=== PATIENT | female | born 1970 | race Caucasian/White ===

== ENCOUNTER 2023-09-20 18:42 | Observation (INO) | payer SELFPAY ==
[2023-09-20 18:52] VITALS: BP 145/95; PULSE 102; RESP 15; TEMP 37.1; O2SAT 98; BMI 25.2
--- NOTE | 2023-09-20 19:08 | CT_ITS ---
The [address] [address] Patient Name: MARIANELA AVITIA MRN: [id number] date: 1970 Sex: F Assigned Patient Location: ER Current Patient Location: ER Accession/Order Number: [id number] Exam Date: 09/20/2023 19:23 Report Date: 09/20/2023 20:30 At the request of: ADRIÁN HENNESSY Procedure: CT lumbar spine wo con EXAM: CT lumbar spine wo con HISTORY: lumbar radiculopathy COMPARISON: None. TECHNIQUE: CT lumbar spine without contrast. Multiplanar reformats obtained. The current study utilizes one or more of the following dose-reduction techniques: automated exposure control, iterative reconstruction, and/or manual adjustment of tube current and voltage for size. FINDINGS: No evidence of acute fracture or traumatic malalignment. Mild multilevel disc height loss. Bones are demineralized. Mild diffuse disc bulging at L1-L2. Spinal canal and neural foramen are grossly patent. Moderate broad-based disc bulging at L2-L3. Spinal canal neural foramen grossly patent. Mild broad-based disc bulging at L3-L4 with grossly patent spinal canal neural foramen. Mild diffuse disc bulging at L4-L5 with grossly patent spinal canal and neural foramen. Central to right paracentral disc extrusion at L5-S1 with caudal migration and narrowing of the right lateral recess, likely involving the descending right-sided S1 nerve root. Bilateral L5-S1 neural foramen are grossly patent. Atrophy of the left kidney CT/CT lumbar spine wo con IMPRESSION: L5-S1 disc extrusion. Central to right paracentral location with caudal migration and narrowing of the right lateral recess and likely involvement of the descending right S1 nerve root. Electronically authenticated by: GEETHA SMITH Date: 09/20/2023 20:30
--- NOTE | 2023-09-20 19:10 | ED_ITS ---
Documented by User: [email or web address] Sullivan 09/20/23 21:48 HPI - Back Pain/Injury General Chief Complaint: Back Pain/Injury Stated Complaint: BACK PAIN Time Seen by Provider: 09/20/23 18:50 Source: patient Mode of arrival: walk-in Limitations: no limitations History of Present Illness HPI Narrative: Patient is a 53-year-old female with a history of chronic back pain who presents to the emergency department for pain control. She states for almost a year she has had increasing pain throughout the spine, worse at the inferior spine and lumbar spine. She has a history of spinal stenosis and had surgery years ago. She states she was being seen by the [facility] and MRIs were ordered but she lost her insurance and her does not have insurance and they do not have money for deposit. She does not have an appointment with a PCP until next week and states she could not take the pain. She admits to drinking 4-5 white claws today to self medicate for pain in addition to taking Tylenol and baclofen 3 hours ago. She reports chronic numbness that is not worse or different today to the right lower extremity. She has chronic urinary incontinence but no stool incontinence. Related Data Home Medications ?Medication ?Instructions ?Recorded ?Confirmed aspirin 81 mg tablet,delayed 81 mg PO DAILY 09/20/23 09/20/23 release baclofen 10 mg tablet 10 mg PO DAILY 09/20/23 09/20/23 losartan 25 mg tablet 25 mg PO DAILY 09/20/23 09/20/23 Allergies Allergy/AdvReac Type Severity Reaction Status Date / Time hydromorphone [From Dilaudid] Allergy Severe Verified 09/20/23 21:46 morphine Allergy Intermediate itch Verified 09/20/23 18:50 Review of Systems ROS Constitutional Denies: fever or chills Ears, nose, mouth, and throat Denies: throat pain or nasal congestion Cardiovascular Denies: chest pain Respiratory Denies: shortness of breath or cough Gastrointestinal Denies: abdominal pain, nausea or vomiting Genitourinary Denies: painful urination Musculoskeletal Reports: back pain; Denies: neck pain or extremity pain Integumentary/Breast Denies: rash Neurological Denies: headache Hematologic/Lymphatic Denies: easy bruising or easy bleeding [facility] Medical History (Updated 09/20/23 @ 22:46 by Annelise Vasquez) 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, lumbar region (ICD-10) Surgical History (Updated 09/20/23 @ 22:46 by Annelise Vasquez) H/O total hysterectomy ?Z90.710 - Acquired absence of both cervix and uterus (ICD-10) H/O splenectomy ?Z90.81 - Acquired absence of spleen (ICD-10) Family History (Updated 09/20/23 @ 23:04 by Shabana Mendoza RN) Father Family history of cancer Family history of diabetes mellitus Family history of hypertension Mother Family history of diabetes mellitus Family history of hypertension Social History (Updated 09/20/23 @ 22:49 by Annelise Vasquez) Within the past year, how often did you have a drink containing alcohol: 4 or more times a week Within the past year, how many standard drinks containing alcohol did you have on a typical day: 3 or 4 Within the past year, how often did you have six or more drinks on one occasion: weekly Total score: 5 Score interpretation: A score of 3 or more indicates drinking is likely to affect patient's safety. Smoking status: Former smoker Non-prescribed substance use: denies use Previous occupational history: unemployed Highest level of school completed/degree received: GED or equivalent Are you now , , , , never or living with a partner: In a typical week, how many times do you talk on the telephone with family, friends, or neighbors: 3 or more times per week How often do you get together with friends or relatives: 3 or more times per week How often do you attend restorationism or confucianism services: never Do you belong to any clubs or organizations such as restorationism groups unions, fraternal or athletic groups, or school groups: no Total score: 2 Score interpretation: A score of greater than or equal to 2 indicates the lowest level of social isolation. Little interest or pleasure in doing things: not at all Feeling down, depressed, or hopeless: not at all Feel stressed/tense/nervous/anxious/difficulty sleeping: not at all Do you think of yourself as: straight/heterosexual Gender Identity: female Exam Narrative Exam Narrative: Gen.: Awake, alert, in no distress Head: Normocephalic, atraumatic ENT: Moist mucous membranes Respiratory: No respiratory distress Back: Well-healed surgical incision over the lumbar spine. Patient does not allow palpation of the C-spine, T-spine or L-spine, points to maximal tenderness over the right paraspinal muscles of the lumbar spine superior to the hip.She is noted to be sitting upright, moving with no difficulty in the exam cart. Extremities: Patient is able to dorsiflex and plantarflex the feet, reports decreased sensation to the right medial thigh. Psych: Normal mood and affect Neuro: No focal neuro deficit Skin: Warm, dry, intact Constitutional Vital Signs, click to edit/add: Last Vital Signs Temp 97.8 F 09/20/23 22:29 Pulse 92 H 09/20/23 22:29 Resp 20 09/20/23 22:29 BP 166/102 H 09/20/23 22:29 Pulse Ox 92 L 09/20/23 22:29 O2 Del Method Room Air 09/20/23 22:29 Course Vital Signs Vital signs: Vital Signs Temperature 98.7 F 09/20/23 18:52 Pulse Rate 102 H 09/20/23 18:52 Respiratory Rate 15 09/20/23 18:52 Blood Pressure 145/95 H 09/20/23 18:52 Pulse Oximetry 98 09/20/23 18:52 Temperature 97.8 F 09/20/23 22:29 Pulse Rate 92 H 09/20/23 22:29 Respiratory Rate 20 09/20/23 22:29 Blood Pressure 166/102 H 09/20/23 22:29 Pulse Oximetry 92 L 09/20/23 22:29 Oxygen Delivery Method Room Air 09/20/23 22:29 MDM - Back Pain/Injury MDM Narrative Medical decision making narrative: As the patient admitted to drinking alcohol and taking an excessive amount of Tylenol today, she was not given any medications with Tylenol and was not given any narcotics. CT of the lumbar spine Shows disc bulging with no acute process. Patient reports chronic paresthesia and difficulty with numbness and tingling to the right lower extremity. She has no focal neurodeficits on exam and was reevaluated by attending physician. At time of reevaluation by Dr. Erwin, the patient is not feeling any better, she reports intractable pain and difficulty walking, she is refusing to leave the emergency department. She was remedicated with 0.5 mg IV Dilaudid. She maintained stable vital signs in the ER. Dr. Erwin discussed admission for intractable pain with the patient and she is agreeable. She is admitted to the hospitalist service for further management. Patient was admitted to hospitalist service, prior to admission after receiving Dilaudid, she reported feeling itchy and was noted to have mild hives. She had no difficulty breathing or hypoxia. She has already received Solu-Medrol on arrival, she is given IV Benadryl and Pepcid. Dilaudid was added to her list of allergies. She is already allergic to morphine as it causes her to itch. She is stable at time of admission. Medical Records Attestation: I reviewed the patient's medical records. Imaging Data CT lumbar spine: Attestation: I have reviewed the pertinent imaging results. Radiologist's impression: ITS Impressions Lumbar Spine CT 09/20/23 19:08 IMPRESSION: L5-S1 disc extrusion. Central to right paracentral location with caudal migration and narrowing of the right lateral recess and likely involvement of the descending right S1 nerve root. Electronically authenticated by: GEETHA SMITH Date: 09/20/2023 20:30 Discharge Plan Discharge Chief Complaint: Back Pain/Injury Clinical Impression: Lumbar radiculopathy, Intractable back pain Patient Disposition: Admitted as Observation Time of Disposition Decision: 21:11 Condition: Good Discharge Date/Time: 09/20/23 22:19 Documented by User: Bucky Erwin 09/20/23 23:11 HPI - Back Pain/Injury General Chief Complaint: Back Pain/Injury Stated Complaint: BACK PAIN Time Seen by Provider: 09/20/23 18:50 Related Data Home Medications ?Medication ?Instructions ?Recorded ?Confirmed aspirin 81 mg tablet,delayed 81 mg PO DAILY 09/20/23 09/20/23 release baclofen 10 mg tablet 10 mg PO DAILY 09/20/23 09/20/23 losartan 25 mg tablet 25 mg PO DAILY 09/20/23 09/20/23 Allergies Allergy/AdvReac Type Severity Reaction Status Date / Time hydromorphone [From Dilaudid] Allergy Severe Verified 09/20/23 21:46 morphine Allergy Intermediate itch Verified 09/20/23 18:50 PFSH PFSH Medical History (Updated 09/20/23 @ 22:46 by Annelise Vasquez) 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, lumbar region (ICD-10) Surgical History (Updated 09/20/23 @ 22:46 by Annelise Vasquez) H/O total hysterectomy ?Z90.710 - Acquired absence of both cervix and uterus (ICD-10) H/O splenectomy ?Z90.81 - Acquired absence of spleen (ICD-10) Family History (Updated 09/20/23 @ 23:04 by Shabana Mendoza RN) Father Family history of cancer Family history of diabetes mellitus Family history of hypertension Mother Family history of diabetes mellitus Family history of hypertension Social History (Updated 09/20/23 @ 22:49 by Annelise Vasquez) Within the past year, how often did you have a drink containing alcohol: 4 or more times a week Within the past year, how many standard drinks containing alcohol did you have on a typical day: 3 or 4 Within the past year, how often did you have six or more drinks on one occasion: weekly Total score: 5 Score interpretation: A score of 3 or more indicates drinking is likely to affect patient's safety. Smoking status: Former smoker Non-prescribed substance use: denies use Previous occupational history: unemployed Highest level of school completed/degree received: GED or equivalent Are you now , , , , never or living with a partner: In a typical week, how many times do you talk on the telephone with family, friends, or neighbors: 3 or more times per week How often do you get together with friends or relatives: 3 or more times per week How often do you attend restorationism or confucianism services: never Do you belong to any clubs or organizations such as restorationism groups unions, fraternal or athletic groups, or school groups: no Total score: 2 Score interpretation: A score of greater than or equal to 2 indicates the lowest level of social isolation. Little interest or pleasure in doing things: not at all Feeling down, depressed, or hopeless: not at all Feel stressed/tense/nervous/anxious/difficulty sleeping: not at all Do you think of yourself as: straight/heterosexual Gender Identity: female Exam Constitutional Vital Signs, click to edit/add: Last Vital Signs Temp 97.8 F 09/20/23 22:29 Pulse 92 H 09/20/23 22:29 Resp 20 09/20/23 22:29 BP 166/102 H 09/20/23 22:29 Pulse Ox 92 L 09/20/23 22:29 O2 Del Method Room Air 09/20/23 22:29 Course Vital Signs Vital signs: Vital Signs Temperature 98.7 F 09/20/23 18:52 Pulse Rate 102 H 09/20/23 18:52 Respiratory Rate 15 09/20/23 18:52 Blood Pressure 145/95 H 09/20/23 18:52 Pulse Oximetry 98 09/20/23 18:52 Temperature 97.8 F 09/20/23 22:29 Pulse Rate 92 H 09/20/23 22:29 Respiratory Rate 20 09/20/23 22:29 Blood Pressure 166/102 H 09/20/23 22:29 Pulse Oximetry 92 L 09/20/23 22:29 Oxygen Delivery Method Room Air 09/20/23 22:29 MDM - Back Pain/Injury MDM Narrative Medical decision making narrative: As the patient admitted to drinking alcohol and taking an excessive amount of Tylenol today, she was not given any medications with Tylenol and was not given any narcotics. CT of the lumbar spine Shows disc bulging with no acute process. Patient reports chronic paresthesia and difficulty with numbness and tingling to the right lower extremity. She has no focal neurodeficits on exam and was reevaluated by attending physician. At time of reevaluation by Dr. Erwin, the patient is not feeling any better, she reports intractable pain and difficulty walking, she is refusing to leave the emergency department. She was remedicated with 0.5 mg IV Dilaudid. She maintained stable vital signs in the ER. Dr. Erwin discussed admission for intractable pain with the patient and she is agreeable. She is admitted to the hospitalist service for further management. Patient was admitted to hospitalist service, prior to admission after receiving Dilaudid, she reported feeling itchy and was noted to have mild hives. She had no difficulty breathing or hypoxia. She has already received Solu-Medrol on arrival, she is given IV Benadryl and Pepcid. Dilaudid was added to her list of allergies. She is already allergic to morphine as it causes her to itch. She is stable at time of admission. For this patient encounter I reviewed the mid-level provider?s documentation, medical decision-making and treatment plan, and I personally spent time with this patient. Shared APC visit, physician attestation: [id number]: This visit was performed by both a physician and an APC. I personally evaluated and examined the patient. I performed all aspects of MDM as documented. - Maria Alejandra, Imaging Data CT lumbar spine: Radiologist's impression: ITS Impressions Lumbar Spine CT 09/20/23 19:08
[2023-09-20] MEDS: KETOROLAC TROMETHAMINE 60 MG/2 ML VIAL IM (19:34)
[2023-09-20] MEDS: METHYLPREDNISOLONE SOD SUCC PF 125 MG/2 ML VIAL IM (19:35)
[2023-09-20] MEDS: HYDROMORPHONE HCL 1 MG/ML CARTRIDGE 0.5 MG IVP (21:30)
[2023-09-20 21:45] VITALS: BP 128/94; PULSE 91; RESP 18; O2SAT 99
[2023-09-20] MEDS: FAMOTIDINE/PF 20 MG/2 ML VIAL IV (22:14)
[2023-09-20] MEDS: DIPHENHYDRAMINE HCL 50 MG/ML (1ML) VIAL 25 MG IV (22:14)
[2023-09-20 22:19] VITALS: PULSE 89; RESP 18; O2SAT 99
[2023-09-20 22:29] VITALS: BP 166/102; PULSE 92; RESP 20; TEMP 36.6; O2SAT 92; BMI 25.1
[2023-09-20 23:47] VITALS: BP 143/88
[2023-09-20] MEDS: KETOROLAC TROMETHAMINE 30 MG/ML VIAL 15 MG IVP (23:59)
--- NOTE | 2023-09-21 00:19 | PC.NURSE ---
Contacted [employer] order or [employer]. Order was placed under miscellaneous order.
[2023-09-21 04:00] VITALS: BP 139/87; PULSE 100; RESP 18; TEMP 36.6; O2SAT 95
[2023-09-21 05:11] LABS: Hematocrit 39.8 % (36.0-48.0); Hemoglobin 13.7 g/dL (12.0-16.0); Mean Corpuscular HGB Conc 34.4 g/dL (29.9-35.2); Mean Corpuscular Hemoglobin 33.5 pg (26.7-34.0); Mean Corpuscular Volume 97.3 fL (81.0-99.0); Mean Platelet Volume 9.3 fL (9.5-13.5); Platelet Count 221 10^3/uL (150-450); Red Blood Count 4.09 10^6/uL (4.20-5.40); Red Cell Distribution Width 12.9 % (11.0-15.0); White Blood Count 4.1 10^3/uL (4.0-11.0)
[2023-09-21 05:28] LABS: Anion Gap 16.3; BUN Creatinine Ratio 11.6; Calcium 8.8 mg/dL (8.5-10.1); Carbon Dioxide 21.7 mmol/L (21.0-32.0); Chloride 94 mmol/L (98-107); Estimated GFR (African America >60 (>=60); Estimated GFR (Non-African Ame >60 (>=60); Glucose 174 mg/dL (74-106); Sodium 128 mmol/L (136-145)
[2023-09-21] MEDS: KETOROLAC TROMETHAMINE 30 MG/ML VIAL 15 MG IVP (05:58)
[2023-09-21 07:56] VITALS: BP 138/86; PULSE 100; RESP 20; TEMP 37.1; O2SAT 94
[2023-09-21 07:57] VITALS: BP 138/86; O2SAT 100
[2023-09-21 08:51] LABS: Alanine Aminotransferase 45 U/L (14-59); Albumin Globulin Ratio 0.7; Albumin Level 3.6 g/dL (3.4-5.0); Alkaline Phosphatase 117 U/L (46-116); Aspartate Amino Transferase 72 U/L (15-37); Bilirubin Direct 0.2 mg/dL (0.0-0.2); Bilirubin Total 0.4 mg/dL (0.2-1.0); Globulin 5.2 g/dL; Total Protein 8.8 g/dL (6.4-8.2)
[2023-09-21] MEDS: LOSARTAN POTASSIUM 25 MG TABLET PO (08:57)
[2023-09-21] MEDS: BACLOFEN 10 MG TABLET PO ×2 (08:57→14:36)
[2023-09-21] MEDS: ASPIRIN 81 MG TABLET.DR PO (08:57)
[2023-09-21] MEDS: LIDOCAINE 5% PATCH 1 PATCH TOPICAL (10:32)
[2023-09-21] MEDS: PREGABALIN 50 MG CAPSULE PO ×2 (10:34→21:19)
--- NOTE | 2023-09-21 11:22 | SWNOTE1 ---
SW spoke to case management and they notified patient financial services about self pay. SW stopped in to room while case management was in room. SW asked pt if she has applied for medicaid, she stated she has filled out the form and it is at home on her desk. Pt lives in [facility]. SW offered to fax it over if pt can't take it to [facility] family services in [place].
--- NOTE | 2023-09-21 11:46 | CM.NOTE ---
Rounded with Dr. Salazar. To adjust some medications, PT/OT eval and if patient feeling better may possibly discharge later today. Spoke to pt regarding self pay status and she said she is a true self pay and was looking into Medicaid. Emailed and also spoke to financial counselor, Corinne Newell, that the patient would like to speak to someone regarding financial situation.
--- NOTE | 2023-09-21 11:57 | P.HP_ITS ---
<Statement entered by Ciro Salazar MD - 09/21/23 17:08> Patient seen and examined, agree with assessment and plan below. History of chronic back pain and prior surgery. Severe pain and radicular symptoms. CT with disc herniation. Admitted for treatment. Started lyrica and PT/OT. Diagnosis: 1. L5/S1 disc herniatino 2. Lumbar radiculopathy 3. Hyponatremia 4. Intractable back pain 5. HTN HPI H&P: HPI History of Present Illness Chief complaint: INTRACTABLE BACK PAIN Lumbar radiculopathy Narrative: 09/21/23 0905 This is a 53-year-old female male patient with a past medical history as outlined below including chronic back pain with known disc herniation, chronic hyponatremia, EtOH abuse, and hypertension; who presented to the ED yesterday evening complaining of worsening back pain. The patient reports severe back pain since January with disc herniation already demonstrated on CT. The patient was scheduled to follow-up at [facility] for an MRI and further evaluation for possible surgical intervention. Unfortunately the patient lost her insurance and was unable to follow-up with the MRI imaging. She has chronic right-sided radiculopathy with pain and paresthesias to the right lower extremity. She denies any urinary or bowel incontinence or changes in bowel/bladder function. She has chronic paresthesias ranging from the mid thigh to her toes depending on the day. She reported to the ED as her pain was gradually increasing over time and she was unable to tolerate her chronic pain at its current levels. Workup in the ED included a CT of the L-spine which again demonstrated L5-S1 disc extrusion and narrowing of the right lateral recess and likely involvement of the descending right S1 nerve root. Patient was also noted to be hyponatremic (128) which is chronic for her. She was admitted in observation to the hospitalist service last night for intractable back pain as she was having difficulty standing and walking in the ED after treatment. A Dilaudid allergy was noted after she received this in the ED and developed itching and hives. Her allergy list has been updated. At the time of my exam the patient is resting in bed. She is uncomfortable due to her lumbar back pain but states this has been chronic and intractable for some time. She denies any new or recent injury. She reports that her level of paresthesias is consistent with her known history. She has applied for Medicaid insurance but is still awaiting acceptance and thus has been unable to pursue medical intervention for her lumbar spine radiculopathy. She has been treated with as needed Toradol and solumedrol which gives her some relief. She denies overdosing with Tylenol at baseline but did take over the recommended limit yesterday due to her increasing pain. She has been reminded to keep her Tylenol doses below 4000 mg/day and verbalizes understanding. We will add a Lidoderm patch and Lyrica to the patient's medication profile and monitor her response. The patient reports hyponatremia at baseline and has sodium tablets prescribed that she has not been taking recently. We will resume 3 times daily dosing of sodium tablets for her chronic hyponatremia. She admits to drinking 4-5 White Claws or Beers daily. Reduction of EtOH intake was advised. Discharge is possible later today or tomorrow pending clinical course. Opioid HPI Opioid Management Most Recent Opioid Data: Last Pain Assessment 09/21/23 14:55 Last MAR Pain Assessment 09/21/23 14:36 Last ORT Total Score 4 09/20/23 22:47 Last ORT Risk Category Moderate Risk 09/20/23 22:47 Review of Systems ROS Status of ROS 10 or more systems reviewed and unremark able except as noted in history and below [facility] Medical History (Updated 09/21/23 @ 10:29 by Carolyn Mariano NP) Herniation of intervertebral disc between L5 and S1 ?M51.27 - Other intervertebral disc displacement, lumbosacral region (ICD-10) Lumbar radiculopathy ?M54.16 - Radiculopathy, lumbar region (ICD-10) Benign essential hypertension ?I10 - Essential (primary) hypertension (ICD-10) Hyponatremia ?E87.1 - Hypo-osmolality and hyponatremia (ICD-10) 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, lumbar region (ICD-10) Surgical History (Updated 09/20/23 @ 22:46 by Annelise Vasquez) H/O total hysterectomy ?Z90.710 - Acquired absence of both cervix and uterus (ICD-10) H/O splenectomy ?Z90.81 - Acquired absence of spleen (ICD-10) Family History (Updated 09/20/23 @ 23:04 by Shabana Mendoza RN) Father Family history of cancer Family history of diabetes mellitus Family history of hypertension Mother Family history of diabetes mellitus Family history of hypertension Social History (Updated 09/20/23 @ 22:49 by Annelise Vasquez) Within the past year, how often did you have a drink containing alcohol: 4 or more times a week Within the past year, how many standard drinks containing alcohol did you have on a typical day: 3 or 4 Within the past year, how often did you have six or more drinks on one occasion: weekly Total score: 5 Score interpretation: A score of 3 or more indicates drinking is likely to affect patient's safety. Smoking status: Former smoker Non-prescribed substance use: denies use Previous occupational history: unemployed Highest level of school completed/degree received: GED or equivalent Are you now , , , , never or living with a partner: In a typical week, how many times do you talk on the telephone with family, friends, or neighbors: 3 or more times per week How often do you get together with friends or relatives: 3 or more times per week How often do you attend presybeterian or yazdanism services: never Do you belong to any clubs or organizations such as presybeterian groups unions, fra[employer]alk[employer] or athletic groups, or school groups: no Total score: 2 Score interpretation: A score of greater than or equal to 2 indicates the lowest level of social isolation. Little interest or pleasure in doing things: not at all Feeling down, depressed, or hopeless: not at all Feel stressed/tense/nervous/anxious/difficulty sleeping: not at all Do you think of yourself as: straight/heterosexual Gender Identity: female Meds Home Medications and Allergies Home Medications ?Medication ?Instructions ?Recorded ?Confirmed ?Type aspirin 81 mg tablet,delayed 81 mg PO DAILY 09/20/23 09/20/23 History release baclofen 10 mg tablet 10 mg PO DAILY 09/20/23 09/20/23 History losartan 25 mg tablet 25 mg PO DAILY 09/20/23 09/20/23 History baclofen 10 mg tablet 10 mg PO Q8H PRN muscle spasm #60 09/21/23 Rx tabs lidocaine 5 % topical patch 1 patch topical Q24H #30 ea 09/21/23 Rx pantoprazole 20 mg tablet,delayed 20 mg PO DAILY #30 tabs 09/21/23 Rx release prednisone 50 mg tablet 50 mg PO DAILY 5 days #5 tabs 09/21/23 Rx pregabalin 50 mg capsule (Lyrica) 50 mg PO BID #60 caps 09/21/23 Rx sodium chloride 1,000 mg soluble 1,000 mg PO TID #90 tabs 09/21/23 Rx tablet Allergies Allergy/AdvReac Type Severity Reaction Status Date / Time hydromorphone [From Dilaudid] Allergy Intermediate Hives Verified 09/21/23 08:06 morphine Allergy Intermediate itch Verified 09/20/23 18:50 Exam Constitutional Vital Signs, click to edit/add: Last Vital Signs Temp 98.8 F 09/21/23 07:56 Pulse 100 H 09/21/23 07:56 Resp 20 09/21/23 07:56 BP 138/86 09/21/23 07:57 Pulse Ox 94 L 09/21/23 07:56 O2 Del Method Room Air 09/21/23 07:56 Common normals: no apparent distress, oriented x3, alert and well nourished General appearance: cooperative Orientation/consciousness: Yes awake HENMT Common normals: normocephalic, head/scalp atraumatic, hearing grossly normal bilaterally, external nose normal and moist oral mucous membranes Eye Common normals: PERRL, EOMs intact bilaterally, conjunctivae normal and no scleral icterus Alignment: alignment normal Eyelid: eyelids normal Neck & C-Spine Common normals: full ROM, supple and no JVD Chest Common normals: inspection of chest normal Chest: symmetrical chest wall rise Respiratory Common normals: normal respiratory effort, no retractions, no use of accessory muscles and clear to auscultation bilaterally Effort & inspection: able to speak in complete sentences Cardio Common normals: no JVD, regular rate, regular rhythm, S1 normal heart sound, S2 normal heart sound, no gallops, no clicks, no murmurs, no rub and peripheral pulses 2+ throughout GI Common normals: Normal to inspection, nondistended, normoactive bowel sounds present, soft to palpation, non-tender, no hepatosplenomegaly, no masses and no bruits Bladder/kidney exam: bladder normal to palpation Back & Pelvis Common normals: thoracic and lumbar spine normal to inspection Thoracic spine/upper back: normal to inspection Lumbar spine/lower back: normal to inspection, pain with ROM, lumbar spinal tenderness, paraspinal muscle tenderness and other soft tissue findings (hypersensitivity pain reaction to light touch-R lumbar/saccral region) Extremity Common normals: normal capillary refill and no pedal edema General: normal exam except as noted; no clubbing and no cyanosis Neuro [place] Coma Scale: GCS not evaluated Common normals: CN's II-XII intact bilaterally, moves all extremities, no focal motor deficits and no sensory deficits noted Speech: speech normal Motor exam: strength 5/5 throughout Psych Common normals: mental status grossly normal, thought process normal, affect normal and activity/motor behavior normal Results Labs Labs: Short CBC 09/21/23 Range/Units 04:21 WBC 4.1 (4.0-11.0) 10^3/uL Hgb 13.7 (12.0-16.0) g/dL Hct 39.8 (36.0-48.0) % Plt Count 221 (150-450) 10^3/uL BMP 09/21/23 04:21 Sodium 128 L Potassium 4.0 Chloride 94 L Carbon Dioxide 21.7 BUN 5.0 L Creatinine 0.43 L Glucose 174 H Calcium 8.8 Liver Function 09/21/23 Range/Units 04:21 Total Bilirubin 0.4 (0.2-1.0) mg/dL Direct Bilirubin 0.2 (0.0-0.2) mg/dL AST 72 H (15-37) U/L ALT 45 (14-59) U/L Alkaline Phosphatase 117 H (46-116) U/L Albumin 3.6 (3.4-5.0) g/dL Pulse Oximetry Attestation: I have reviewed the pertinent pulse oximetry results. Imaging CT Lumbar Spine: Radiologist's impression: IMPRESSION: L5-S1 disc extrusion. Central to right paracentral location with caudal migration and narrowing of the right lateral recess and likely involvement of the descending right S1 nerve root. Assessment and Plan Assessment and Plan (1) Intractable back pain: Assessment and Plan: Acute on Chronic * Adm observation * D/t known L5-S1 disc extrusion on R w/ S1 nerve root involvement and chronic radiculopathy * Toradol 30 mg q6h PRN * Solumedrol 125 x 1 given in ED * Start Lyrica 50 bid and daily Lidoderm patch * Increase home baclofen from daily to TID PRN * office services assistant to give assistance as needed with Medicaid application follow up * Follow up outpatient with [facility] as soon as possible (2) Hyponatremia: Assessment and Plan: Chronic * Resume sodium supplementation TID as previously prescribed * Encourage EtOH reduction/cessation (3) Benign essential hypertension: Assessment and Plan: Chronic * Continue home losartan
[2023-09-21 12:00] VITALS: BP 127/89; PULSE 99; RESP 20; TEMP 36.8; O2SAT 95
--- NOTE | 2023-09-21 12:03 | SWNOTE1 ---
SW stopped back in to speak with pt in regards to her alcohol intake. Pt voices she has 3-4 beers daily and has been doing it for years. Pt voices she does not want to quit, she does it due to boredom. Pt lives with her , he still works. Pt lost her job due to her medical issues. SW asked about support system other than her , she states she talks to her family daily. SW asked if she was having any signs or symtpoms of depression, pt voices she is not. SW asked if she has ever experienced any withdrawal symptoms and she stated no. SW asked again if she was interested in not drinking anymore and like resources for AA and inpt/outpt rehab. She stated no. SW did ask if she felt her drinking was affecting her health, pt stated no. At this time pt voices no discharge needs and refuses any alcohol resources. SW did advise pt if she ever does want any resources to call and ask for SW.
[2023-09-21] MEDS: SODIUM CHLORIDE 1,000 MG TABLET 1000 MG PO ×2 (13:15→21:19)
[2023-09-21] MEDS: KETOROLAC TROMETHAMINE 30 MG/ML VIAL IVP (14:36)
[2023-09-21 15:31] VITALS: BP 150/93; PULSE 91; RESP 20; TEMP 37.1; O2SAT 94
[2023-09-21 19:34] VITALS: BP 151/84; PULSE 84; RESP 20; TEMP 36.8; O2SAT 95
[2023-09-22] VITALS: BP 157/91; PULSE 89; RESP 18; TEMP 36.8; O2SAT 97
[2023-09-22 03:57] VITALS: BP 152/92; PULSE 100; RESP 18; TEMP 37.1; O2SAT 94
[2023-09-22 04:58] LABS: Basophils Absolute Auto 0.1 10^3/uL (0.0-0.1); Basophils Percent Auto 0.4 % (0.2-2.0); Eosinophils Absolute Auto 0.1 10^3/uL (0.0-0.7); Eosinophils Percent Auto 0.6 % (0.9-7.0); Hemoglobin 14.1 g/dL (12.0-16.0); Immature Granulocytes Abs Auto 0.03 10^3/uL (0.00-0.03); Immature Granulocytes Pct Auto 0.2 % (0.0-0.5); Lymphocytes Absolute Auto 3.1 10^3/uL (1.2-3.8); Lymphocytes Percent Auto 24.8 % (20.5-60.0); Mean Corpuscular HGB Conc 33.6 g/dL (29.9-35.2); Mean Corpuscular Hemoglobin 33.3 pg (26.7-34.0); Mean Corpuscular Volume 99.1 fL (81.0-99.0); Mean Platelet Volume 9.7 fL (9.5-13.5); Monocytes Absolute Auto 1.1 10^3/uL (0.3-0.8); Neutrophils Absolute Auto 8.1 10^3/uL (1.4-6.5); Platelet Count 198 10^3/uL (150-450); Red Blood Count 4.24 10^6/uL (4.20-5.40); Red Cell Distribution Width 13.3 % (11.0-15.0); White Blood Count 12.4 10^3/uL (4.0-11.0)
[2023-09-22 05:15] LABS: Alanine Aminotransferase 38 U/L (14-59); Albumin Globulin Ratio 0.7; Albumin Level 3.7 g/dL (3.4-5.0); Alkaline Phosphatase 103 U/L (46-116); Anion Gap 16.4; Aspartate Amino Transferase 57 U/L (15-37); BUN Creatinine Ratio 15.7; Bilirubin Total 1.5 mg/dL (0.2-1.0); Calcium 9.6 mg/dL (8.5-10.1); Carbon Dioxide 24.2 mmol/L (21.0-32.0); Chloride 96 mmol/L (98-107); Estimated GFR (African America >60 (>=60); Estimated GFR (Non-African Ame >60 (>=60); Globulin 5.2 g/dL; Glucose 95 mg/dL (74-106); Potassium 3.6 mmol/L (3.5-5.1); Sodium 133 mmol/L (136-145); Total Protein 8.9 g/dL (6.4-8.2)
[2023-09-22] MEDS: SODIUM CHLORIDE 1,000 MG TABLET 1000 MG PO (06:06)
[2023-09-22 08:00] VITALS: BP 127/85; PULSE 97; RESP 18; TEMP 36.7; O2SAT 94
[2023-09-22] MEDS: ASPIRIN 81 MG TABLET.DR PO (09:48)
[2023-09-22] MEDS: PREGABALIN 50 MG CAPSULE PO (09:48)
[2023-09-22] MEDS: LIDOCAINE 5% PATCH 1 PATCH TOPICAL (09:48)
[2023-09-22] MEDS: LOSARTAN POTASSIUM 25 MG TABLET PO (09:48)
[2023-09-22] MEDS: PREDNISONE 20 MG TABLET 50 MG PO (09:48)
--- NOTE | 2023-09-22 09:56 | P.DS_ITS ---
<Statement entered by Ciro Salazar MD - 09/22/23 11:10> Patient seen and examined, agree with assessment and plan below. History of chronic back pain and prior surgery. Severe pain and radicular symptoms. CT with disc herniation. Admitted for treatment. Started lyrica and PT/OT. Started solu-medrol. Significantly improved overnight. Less pain and tolerable with medication. Ambulating well. Discharged in stable condition. Diagnosis: 1. L5/S1 disc herniation 2. Lumbar radiculopathy 3. Hyponatremia 4. Intractable back pain 5. HTN DS: Providers Provider Date of admission: 09/20/23 22:19 Primary care physician: Non-Staff Physician, Consults: 09/21/23 09:00 Occupational Therapy Eval and Treat Routine Reason for consultation: back pain Has provider been notified: No Physical Therapy Eval and Treat Routine Reason for consultation: back pain Has provider been notified: No Discharging clinician: Carolyn Mariano DS: Diagnosis Discharge Diagnosis (1) Intractable back pain: (2) Hyponatremia: (3) Benign essential hypertension: (4) Abnormal liver function tests: DS: Summary Hospital Course Hospital Course: The patient was admitted with intractable back pain from a known L5-S1 disc extrusion and associated radiculopathy. Patient is currently uninsured and has been unable to pursue further intervention at [facility] as previously initiated, and her low back pain was becoming increasingly severe and intolerable. She was treated with IVP Toradol, steroids, lidocaine patch, and Lyrica. After 24 hours of treatment her symptoms were significantly improved. She is being discharged home in stable condition with prescriptions for Lyrica, as needed baclofen, Protonix for GI protection on NSAIDs, and a Lidoderm patch. The patient is to follow-up with her PCP in 5 to 7 days and with neuro spine at [facility] as soon as possible once her insurance issues are resolved. Her liver function labs were mildly elevated during this stay, likely secondary to Tylenol overuse prior to admission. The patient has been instructed to avoid taking more than 4000 mg of Tylenol per day (below 3000 mg if possible). Decreased EtOH consumption was advised as well. We recommend a follow-up CMP after discharge to continue to monitor her liver function. Time Spent with Patient Time attestation: Total time spent providing and/or coordinating discharge services: Time spent: greater than 30 minutes Specific discharge activities: Physical exam, discussion of discharge plan, questions answered. Exam Constitutional Vital Signs, click to edit/add: Last Vital Signs Temp 98.8 F 09/22/23 03:57 Pulse 100 H 09/22/23 03:57 Resp 18 09/22/23 03:57 BP 152/92 H 09/22/23 03:57 Pulse Ox 94 L 09/22/23 03:57 O2 Del Method Room Air 09/22/23 03:57 Common normals: no apparent distress, oriented x3 and alert General appearance: cooperative Orientation/consciousness: Yes awake HENMT Common normals: normocephalic and head/scalp atraumatic Eye Common normals: PERRL, EOMs intact bilaterally, conjunctivae normal and no scleral icterus Neck & C-Spine Common normals: no JVD Respiratory Common normals: normal respiratory effort, no use of accessory muscles and clear to auscultation bilaterally Effort & inspection: able to speak in complete sentences and symmetric chest movement Cardio Common normals: no JVD, regular rate, regular rhythm, S1 normal heart sound, S2 normal heart sound, no murmurs and peripheral pulses 2+ throughout GI Common normals: Normal to inspection, nondistended, normoactive bowel sounds present, soft to palpation and non-tender Bladder/kidney exam: bladder normal to palpation Extremity Common normals: normal to inspection, full ROM, normal capillary refill and no pedal edema General: no clubbing and no cyanosis Neuro Common normals: moves all extremities, no focal motor deficits and no sensory deficits noted Speech: speech normal Psych Common normals: mental status grossly normal and activity/motor behavior normal DS: Data Data Completed and Pending Labs on day of discharge: Labs from last 24 hours 09/22/23 04:08 WBC 12.4 H RBC 4.24 Hgb 14.1 Hct 42.0 MCV 99.1 H MCH 33.3 MCHC 33.6 RDW 13.3 Plt Count 198 MPV 9.7 Neut % (Auto) 65.0 Lymph % (Auto) 24.8 [place] % (Auto) 9.0 Eos % (Auto) 0.6 L Baso % (Auto) 0.4 Neut # (Auto) 8.1 H Lymph # (Auto) 3.1 [place] # (Auto) 1.1 H Eos # (Auto) 0.1 Baso # (Auto) 0.1 Abs Immat Gran (auto) 0.03 Imm/Tot Granulo (auto) 0.2 Sodium 133 L Potassium 3.6 Chloride 96 L Carbon Dioxide 24.2 Anion Gap 16.4 BUN 11.0 Creatinine 0.70 Est GFR ( Amer) >60 Est GFR (Non-Af Amer) >60 BUN/Creatinine Ratio 15.7 Glucose 95 Calcium 9.6 Total Bilirubin 1.5 H AST 57 H ALT 38 Alkaline Phosphatase 103 Total Protein 8.9 H Albumin 3.7 Globulin 5.2 Albumin/Globulin Ratio 0.7 Discharge Plan Discharge Disposition: Home, Self-Care Condition: Good Discharge Medications: New pregabalin [Lyrica] 50 mg capsule 50 mg PO BID Qty: 60 0RF sodium chloride 1,000 mg tablet,soluble 1,000 mg PO TID Qty: 90 0RF lidocaine 5 % adhesive patch,medicated 1 patch topical Q24H Qty: 30 0RF Rx Instructions: leave on most painful area for up to 12 hrs pantoprazole 20 mg tablet,delayed release (DR/EC) 20 mg PO DAILY Qty: 30 0RF Rx Instructions: May substitute OTC preparation prednisone 50 mg tablet 50 mg PO DAILY 5 Days Qty: 5 0RF baclofen 10 mg tablet 10 mg PO Q8H PRN (Reason: muscle spasm) Qty: 60 0RF Continued aspirin 81 mg tablet,delayed release (DR/EC) 81 mg PO DAILY losartan 25 mg tablet 25 mg PO DAILY Discontinued baclofen 10 mg tablet 10 mg PO DAILY Activity: increase activity as tolerated Diet: advance to your usual diet Print Language: [place] Patient Instructions: Prednisone (By mouth), Baclofen (By mouth), Lidocaine (On the skin), Pantoprazole (By mouth), Pregabalin (By mouth), Sodium Chloride (By mouth), Back Pain (ED) Activity Restrictions/Additional Instructions: - Stay as active as possible. Avoid laying in bed for prolonged periods of time. - Follow up with [facility] for MRI as previously ordered as soon as possible - May alternate Tylenol and Ibuprofen for pain every 3-4 hrs. -Do not take more than 4000 mg of tylenol per day. - Avoid regular use of Ibuprofen for more than 14 days. Take protonic daily if using ibuprofen routinely. - Consider repeat CMP to monitor liver function Forms: Portal Instructions Follow Up Appointments: September 26 @ 8:45am with Dr. Hoyos [phone]
--- NOTE | 2023-09-22 10:03 | PT.DAILY ---
Physical Therapy Daily Note PT Daily Note/Assess Start: 09/22/23 10:01 Freq: Status: Active Protocol: Document 09/22/23 10:01 CESAR (Rec: 09/22/23 10:03 CESAR [id number]) Physical Therapy Daily Note/Assessment Time In/Time Out Time In 09:55 Time Out 10:01 Pain In Pain N/A Pain Out Pain N/A Subjective Subjective Pt supine upon arrival. Agrees to PT. Reports going home today. Has been up ad dominik in room. Back pain is 5/10. Therapeutic Activity Time Therapeutic Activity Minutes (minutes) 5 Therapeutic Activity Units 0 Therapeutic Activity Treatment Bed Mobility Ability Independent Chair Transfer Ability Independent Therapeutic Activity Comments Supine>sit IND. Sit>stand IND. Amb 120' without AD IND. COmpletes stair training up/ down 4 steps 2x with 1 UE support IND. Amb back to room 120'. No further needs at this time. Steady with gait with pretty quick campbell. Total Physical Therapy Time Total Therapy Minutes 5 Total Physical Therapy Units 0 Summary Daily Note Summary IND with all transfers and ADLs today. Pt able to ascend/ descend 8 stairs with 1 UE support without difficulty. Steady with amb. DC to home today.
--- NOTE | 2023-09-22 10:30 | CM.NOTE ---
Rounds made with Dr. Salazar, pt will discharge to home today. No discharge needs identified.
--- NOTE | 2023-09-23 15:41 | CM.DCFOLLOWU ---
Person spoke with: Carol How are you feeling? About the same How is your pain? Better Did you understand your discharge instructions? Yes Do you have any questions about your discharge instructions? No Were you given any prescriptions at discharge? Yes Were you able to get your prescriptions filled? Yes Do you understand how to take your medications as ordered? Yes Do you have any questions about your follow up appointment and do you plan to keep your follow up appointment? No its on Tuesday and I will go Is there anything else that you would like to discuss? No Questions/Comments/Concerns/Other:
== END 2023-09-22 12:15 | disposition home or self-care (01) ==
LOC: ER 21:48 → MS 22:22
PROVIDERS: Nurse Practitioner; Registered Nurse; Admitting Provider Family Medicine; Emergency Provider Emergency Medicine; Visit Provider Family Medicine
DX: M51.17 Intervertebral disc disorders with radiculopathy, lumbosacral region (principal); E87.1 Hypo-osmolality and hyponatremia; I10 Essential (primary) hypertension; R79.89 Other specified abnormal findings of blood chemistry; Z79.82 Long term (current) use of aspirin; Z79.899 Other long term (current) drug therapy; Z98.1 Arthrodesis status; Z90.81 Acquired absence of spleen; Z90.710 Acquired absence of both cervix and uterus; Z87.891 Personal history of nicotine dependence
CPT/HCPCS: 36415; 72131; 80048; 80053; 80076; 85025; 85027; 96372; 96374; 96375; 96376; 97161; 97165; 99285; G0378; J1170; J2930

== ENCOUNTER 2025-03-29 21:47 | Emergency (ER) | payer MEDICAID, SELFPAY ==
--- OUTSIDE RECORDS SUMMARY | 2023-10-04 09:15 | XMS_ITS ---
Author Organization [facility]ices Address [address] [place], [place] [id number] Care Team Providers Care Pan Devulcanizer Name Role Phone Sharondaelsie Diana Unavailable [phone] REASON FOR VISIT 1 week back pain & hyponatremia Social History Sex Assigned At : Social History Observation Description Sex Assigned At Female Encounters Encounter Location Date Provider Diagnosis Main [address] [place], [place] [id number] 10/04/2023 Diana Baird Plan Of Treatment No Information Progress Notes * Carol AVITIADOB:1970 ( 54 yo F)Acc No.[id number]:10/04/2023 Medical Note Patient: Carol BARRETT Provider: Sarah Hoyos MD :1970 A ge:53 Y S ex:Female Date:10/04/2023 Address:[address] [place], [place] [id number] Subjective: * Chief Complaints: * 1 . 1 week back pain & hyponatremia. * Medical History: Objective: * Vitals: Assessment: Plan: * Treatment: * Billing Information: * Visit Code: * Procedure Codes: * Electronic signature of Peggy Baird MD on 03/29/2025 at 10:06 PM EDT Sign off status: Pending * Provider: Sarah Hoyos MD Date: 0 10/04/2023 Generated for Printi ng/Faxing/eTransmitting on: 0 03/29/2025 10:06 PM EDT
--- OUTSIDE RECORDS SUMMARY | 2023-10-06 05:15 | XMS_ITS ---
Author Organization [facility] Address [address] [place], [place] [id number] Care Team Providers Care [employer] Director Name Role Phone fabianCalos Rajputiti Unavailable [phone] REASON FOR VISIT Right side numbness Social History Sex Assigned At : Social History Observation Description Sex Assigned At Female Encounters Encounter Location Date Provider Diagnosis Main [address] [place], [place] [id number] 10/06/2023 Diana Baird Plan Of Treatment No Information Progress Notes * Carol AVITIADOB:1970 ( 54 yo F)Acc No.[id number]:10/06/2023 Medical Note Patient: Carol BARRETT Provider: Sarah Hoyos MD :1970 A ge:53 Y S ex:Female Date:10/06/2023 Address:[address] [place], [place] [id number] Subjective: * Chief Complaints: * 1 . Right side numbness. * Medical History: Objective: * Vitals: Assessment: Plan: * Treatment: * Billing Information: * Visit Code: * Procedure Codes: * Electronic signature of Peggy Baird MD on 03/29/2025 at 10:07 PM EDT Sign off status: Pending * Provider: Sarah Hoyos MD Date: 0 10/06/2023 Generated for Printi ng/Faxing/eTransmitting on: 0 03/29/2025 10:07 PM EDT
--- OUTSIDE RECORDS SUMMARY | 2023-10-11 11:15 | XMS_ITS ---
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 Role Phone Diana Baird Unavailable [phone] REASON FOR VISIT 1 week back pain & hyponatremia Medications Medication SIG (Take, Route, Frequency, Duration) Notes Start Date End Date Status predniSONE 50 MG 1 tablet Orally Once a day Active Pantoprazole Sodium 20 MG 1 tablet Orally Once a day Active Ibuprofen 800 MG 1 tablet with food or milk as needed Orally every 8 hrs; Duration: 30 days Active Dietary Management Product - as directed Orally Electrolyte Salt Active Aspirin 81 MG 1 tablet Orally Once a day Active Sodium Chloride 1 GM as directed Orally Active Pregabalin 50 MG 1 capsule Orally Twice a day Active Albuterol Sulfate HFA 108 (90 Base) MCG/ACT 2 puff as needed Inhalation every 4 hrs; Duration: 30 days 07/20/2022 Not-Taking Ondansetron HCl 4 MG 1 tablet Orally three times a day; Duration: 10 days 05/09/2023 Not-Taking Losartan Potassium 25 MG TAKE ONE TABLET BY MOUTH DAILY; Duration: 90 days Active Escitalopram Oxalate 10 MG 1 tablet Orally Once a day; Duration: 90 days Not-Taking Multivitamin - 1 tablet Orally Once a day Not-Taking Baclofen 10 MG 1 tablet as needed Orally three times a day; Duration: 30 days Active Lidocaine 5 % 1 patch remove after 12 hours Externally Once a day Active Escitalopram Oxalate 5 MG 1 tablet Orally Once a day; Duration: 30 days -dose decrease on 05/10/2023 Not-Taking Social History Sex Assigned At : Social History Observation Description Sex Assigned At Female Encounters Encounter Location Date Provider Diagnosis Main [address] [place], [place] [id number] 10/11/2023 Diana Baird Plan Of Treatment No Information Progress Notes * Carol AVITIADOB:1970 ( 54 yo F)Acc No.[id number]:10/11/2023 Medical Note Patient: Carol BARRETT Provider: Sarah Hoyos MD :1970 A ge:53 Y S ex:Female Date:10/11/2023 Address:[address] [place] [address], [id number] Subjective: * Chief Complaints: * 1 . 1 week back pain & hyponatremia. * Medical History: * Medications: T aking Sodium Chloride 1 GM Tablet as directed Orally , Taking Pregabalin 50 MG Capsule 1 capsule Orally Twice a day , Taking predniSONE 50 MG Tablet 1 tablet Orally Once a day , Taking Pantoprazole Sodium 20 MG Tablet Delayed Release 1 tablet Orally Once a day , Taking Ibuprofen 800 MG Tablet 1 tablet with food or milk as needed Orally every 8 hrs , Taking Dietary Management Product - Tablet as directed Orally , Notes to Pharmacist: Electrolyte Salt, Taking Aspirin 81 MG Tablet Chewable 1 tablet Orally Once a day , Taking Baclofen 10 MG Tablet 1 tablet as needed Orally three times a day , Taking Lidocaine 5 % Patch 1 patch remove after 12 hours Externally Once a day , Taking Losartan Potassium 25 MG Tablet TAKE ONE TABLET BY MOUTH DAILY , Not-Taking/PRN Escitalopram Oxalate 5 MG Tablet 1 tablet Orally Once a day , Notes to Pharmacist: -dose decrease on 05/10/2023, Not-Taking/PRN Escitalopram Oxalate 10 MG Tablet 1 tablet Orally Once a day , Not-Taking/PRN Multivitamin - Tablet 1 tablet Orally Once a day , Not-Taking/PRN Albuterol Sulfate HFA 108 (90 Base) MCG/ACT Aerosol Solution 2 puff as needed Inhalation every 4 hrs , Not-Taking/PRN Ondansetron HCl 4 MG Tablet 1 tablet Orally three times a day Objective: * Vitals: Assessment: Plan: * Treatment: * Billing Information: * Visit Code: * Procedure Codes: * Electronic signature of Peggy Baird MD on 03/29/2025 at 10:07 PM EDT Sign off status: Pending * Provider: Sarah Hoyos MD Date: 0 10/11/2023 Generated for Deyanira hawkins/Flo/Marleni on: 0 03/29/2025 10:07 PM EDT
[2025-03-29 21:53] VITALS: BP 156/96; PULSE 111; TEMP 37.3; O2SAT 96; BMI 24.9
--- NOTE | 2025-03-29 22:02 | XR_ITS ---
[facility] [place] [address] Patient Name: MARIANELA AVITIA MRN: [id number] date: 1970 Sex: F Assigned Patient Location: ED.MAIN Current Patient Location: ED.MAIN Accession/Order Number: [id number] Exam Date: 03/29/2025 22:08 Report Date: 03/29/2025 22:51 At the request of: SOPHIE LEE MD Procedure: XR ribs LT min 3V w CXR1V PA CHEST WITH LEFT RIBS: CLINICAL HISTORY: pain COMPARISON: None FINDINGS: Unremarkable cardiomediastinal. Lungs clear. No effusion or pneumothorax. Questionable irregularity involving the left seventh and eighth ribs. No displaced rib fracture. XR/XR ribs LT min 3V w CXR1V IMPRESSION: Questionable summation artifact versus subacute fracture left seventh and eighth ribs. Please correlate with point tenderness.. Impression dictated by: Yosi Sullivan M.D. 03/29/2025 10:51 PM Dictation Location: [place] [address] Electronically authenticated by: [id number] Y Date: 03/29/2025 22:51
--- OUTSIDE RECORDS SUMMARY | 2025-03-29 22:07 | XMS_ITS | Clinical Summary ---
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
--- OUTSIDE RECORDS SUMMARY | 2025-03-29 22:07 | XMS_ITS | Clinical Summary ---
Author Organization [email or web address] tem Address [id number] [address] [place] [address] Care Team Providers Care Loan Supervisor Name Role Phone Services, [facility] Primary Care Provider Allergies Active Allergy Reactions Criticality Noted Date Comments Morphine 08/22/2016 Medications aspirin 81 mg capsule 1 tablet Active albuterol (PROVENTIL HFA;VENTOLIN HFA) 90 mcg/actuation inhaler 6 (six) times a day. 3 Active thiamine HCl (VITAMIN B-1) 100 mg tablet Take 1 tablet (100 mg total) by mouth in the morning. 2 Active losartan (COZAAR) 25 mg tablet Take 1 tablet (25 mg total) by mouth in the morning. 2 Active folic acid (FOLVITE) 1 mg tablet Take 1 tablet (1,000 mcg total) by mouth in the morning. 2 Active cyanocobalamin 500 MCG tablet Take 0.5 tablets (250 mcg total) by mouth in the morning. 2 Active cloNIDine (CATAPRES) 0.1 mg tablet Take 1 tablet (0.1 mg total) by mouth 3 (three) times a day. 2 Active carvediloL (COREG) 12.5 mg tablet Take 1 tablet (12.5 mg total) by mouth. 2 Active aspirin 325 mg tablet Take 1 tablet (325 mg total) by mouth in the morning. Active cyclobenzaprine (FLEXERIL) 10 mg tablet Take 1 tablet (10 mg total) by mouth 3 (three) times a day. 3 Active ibuprofen (MOTRIN) 800 mg tablet Take 1 tablet (800 mg total) by mouth every 8 (eight) hours as needed for pain. Active baclofen (LIORESAL) 10 mg tablet TAKE ONE TABLET BY MOUTH THREE TIMES A DAY NEEDED for 30 Active pregabalin (LYRICA) 75 mg capsuleIndication s:Lumbar disc displacement without myelopathy Take 1 capsule (75 mg total) by mouth in the morning and 1 capsule (75 mg total) before bedtime. 60 capsule 1 3 Active Active Problems Problem Noted Date Diagnosed Date Lumbar neuritis 12/08/2022 Lumbar disc displacement without myelopathy 01/2023 Hypertensive encephalopathy 08/23/2016 Hypertensive urgency 08/23/2016 Anxiety 08/23/2016 Sinus tachycardia 08/23/2016 Fatty liver disease, nonalcoholic 08/23/2016 TIA (transient ischemic attack) 08/22/2016 Hyponatremia 08/22/2016 Social History Tobacco Use Types Packs/Day Years Used Date Smoking Tobacco: Former Cigarettes Q uit: 05/02/2022 Smokeless Tobacco: Never Tobacco Cessation:Counseling Given: Not Answered Alcohol Use Standard Drinks/Week Comments Yes 0 (1 standard drink = 0.6 oz pur e alcohol) several times a week Childcare Answer Date Recorded Childcare Unknown 12/13/2018 Employment Answer Date Recorded Employment Unknown 12/13/2018 Hunger Screening Answer Date Recorded Within the past 12 months we worried whether our food would run out before we got money to buy more. Never True 01/19/2023 Within the past 12 months th e food we bought just didn't last and we didn't have money to get more. Never True 01/19/2023 Purpose - Life Answer Date Recorded Purpose and direction in life Unknown Comments No Sex and Gender Information Value Date Recorded Sex Assigned at Not on file Legal Sex Female 11:22 AM EDT Gender Identity Not on file Sexual Orientation Not on file Last Filed Vital Signs Vital Sign Reading Time Taken Comments Blood Pressure 115/80 02/25/2023 1:19 PM EDT Pulse 96 02/25/2023 1:19 PM EDT Temperature 36.4 C (97.6 F) 02/25/2023 12:55 PM EDT Respiratory Rate 18 02/25/2023 1:19 PM EDT Oxygen Saturation 96% 02/25/2023 1:19 PM EDT Inhaled Oxygen Concentration - - Weight 69.4 kg (153 lb) 01/19/2023 8:57 AM EDT Height 162.6 cm (5' 4 ) 01/19/2023 8:57 AM EDT Body Mass Index 26.26 01/19/2023 8:57 AM EDT Plan of Treatment Health Maintenance Due Date Last Done Comments Statin Use: Cardiovascular 1970 Depression Screening 1982 Tobacco Screening 1982 DTaP,Tdap and Td Vaccines (1 - Tdap) 1989 Zoster (Shingles) Vaccine (1 of 2) 2020 Adult BMI Screening 01/20/2024 01/19/2023 COVID-19 Vaccine (3 - season) 03/04/202507/2020, 03/13/2021 Influenza Vaccine 03/04/2025 Medical Devices Not on file Insurance [facility] Care Teams Loan Supervisor Relationship Specialty Start Date End Date Services, [facility] [address] [place], [place] PCP - General Family Medicine 06/07/17
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
--- OUTSIDE RECORDS SUMMARY | 2025-03-29 22:07 | XMS_ITS | Clinical Summary ---
Author Organization [facility] Address [address], [address] [place] [address] Care Team Providers Care Banquet Steward Name Role Phone Fran Guajardo PA-C Primary Care Provider Allergies Active Allergy Reactions Criticality Noted Date Comments Morphine Hives 05/03/2020 Morphine 05/09/2022 Medications citalopram (CELEXA) 20 MG tabletIndicatio ns:Anxiety attack Take 1 tablet by mouth daily 30 tablet 3 0 Active Additional Information Patient not taking.Reported on 12/08/2022 cyanocobalamin ([employer] VITAMIN B12) 1000 MCG tabletIndicatio ns:Anxiety attack,Right sided numbness Take 1 tablet by mouth daily 30 tablet 3 0 Active oxaprozin (DAYPRO) 600 MG tablet 1 Active Multiple Vitamins-Minera ls (THERAPEUTIC MULTIVITAMIN-IA NERALS) tablet Take 1 tablet by mouth daily Active losartan (COZAAR) 25 MG tablet Take 1 tablet by mouth daily 30 tablet 2 Active folic acid (FOLVITE) 1 MG tablet Take 1 tablet by mouth daily 90 tablet 1 2 Active Additional Information Patient not taking.Reported on 12/08/2022 aspirin 325 MG tablet Take 1 tablet by mouth daily Active cloNIDine (CATAPRES) 0.1 MG tablet Take 1 tablet by mouth 3 times daily 90 tablet 2 Active carvedilol (COREG) 12.5 MG tablet Take 1 tablet by mouth 2 times daily (with meals) 60 tablet 12/15/202 2 Active Additional Information Patient not taking.Reported on 12/08/2022 thiamine 100 MG tablet Take 1 tablet by mouth daily 30 tablet 2 Active Additional Information Patient not taking.Reported on 12/08/2022 albuterol sulfate HFA (PROVENTIL;VENT ISAIAS;PROAIR) 108 (90 Base) MCG/ACT inhaler every 6 hours as needed 3 Active cyclobenzaprine (FLEXERIL) 10 MG tablet Take by mouth 3 times daily 3 Active gabapentin (NEURONTIN) 100 MG capsule Take by mouth 3 times daily. Active ibuprofen (ADVIL;MOTRIN) 800 MG tablet Take by mouth every 8 hours as needed Active Active Problems Problem Noted Date Diagnosed Date Seizure-like activity 06/14/2022 Vitamin B12 deficiency 05/12/2022 Alcohol intoxication 05/11/2022 Hyponatremia 05/09/2022 Generalized weakness 05/09/2022 Anxiety state 05/30/2020 Herniated lumbar intervertebral disc 05/30/2020 Paresthesias 05/03/2020 Right sided numbness 05/02/2020 Resolved Problems Problem Noted Date Diagnosed Date Resolved Date Seizure disorder 06/14/2022 06/14/2022 Fall 05/09/2022 06/08/2022 Family History Medical History Relation Name Comments No Known Problems Father No Known Problems Mother Relation Name Status Comments Father Mother Social History Tobacco Use Types Packs/Day Years Used Date Smoking Tobacco: Former Cigarettes Q uit: 04/03/2022 Smokeless Tobacco: Never Tobacco Cessation:Counseling Given: Not Answered Alcohol Use Standard Drinks/Week Comments Yes 0 (1 standard drink = 0.6 oz pur e alcohol) occasionally AUDIT-C Answer Date Recorded Q1: How often do you have a drink containing alcohol? 4 or more times a week 05/09/2022 Q2: How many drinks containi ng alcohol do you have on a typical day when you are drinking? 3 or 4 Q3: How often do you have si x or more drinks on one occasion? Less than monthly 05/09/2022 Comments No Sex and Gender Information Value Date Recorded Sex Assigned at Not on file Legal Sex Female 12:22 PM EST Gender Identity Not on file Sexual Orientation Not on file Last Filed Vital Signs Vital Sign Reading Time Taken Comments Blood Pressure 167/119 12/08/2022 12:10 PM EDT Pulse 94 12/08/2022 12:10 PM EDT Temperature 36.4 C (97.6 F) 12/08/2022 12:01 PM EDT Respiratory Rate 16 12/08/2022 12:0 1 PM EDT Oxygen Saturation 99% 07/15/2022 1:35 PM EST Inhaled Oxygen Concentration - - Weight 69.8 kg (153 lb 12.8 oz) 023 12:01 PM EDT Height 162.6 cm (5' 4 ) 12/08/2022 12:0 1 PM EDT Body Mass Index 26.4 12/08/2022 12:01 PM EDT Plan of Treatment Health Maintenance Due Date Last Done Comments Depression Screen 1982 HIV screen 1985 Hepatitis C screen 1988 DTaP/Tdap/Td vaccine (1 - Tdap) 1989 Hepatitis B vaccine (1 of 3 - 19+ 3-dose series) 1989 Pap smear 1991 Cervical cancer screen 2000 HPV (without or with Pap) 2000 Breast cancer screen 2010 Colonoscopy 2015 Colorectal Cancer Screen 2015 FIT/FOBT: Average risk 2015 Fecal-DNA (Cologuard): Average risk 2015 Sigmoidoscopy/CT colonography 2015 Pneumococcal 50+ years Vaccine (1 of 1 - PCV) 2020 Shingles vaccine (1 of 2) 2020 Flu vaccine (#1) 02/01/2025 COVID-19 Vaccine (3 - 2024-2 6 season) 2025 04/03/2021, 03/13/2021 Lipids 05/10/2027 05/10/2022 Diabetes screen Discontinued 05/10/2022 Hepatitis A vaccine Aged Out No longe r eligible based on patient's age to complete this topic Hib vaccine Aged Out No longer eligi ble based on patient's age to complete this topic Meningococcal (ACWY) vaccine Aged Out No longer eligible based on patient's age to complete this topic Meningococcal B vaccine Aged Out No l onger eligible based on patient's age to complete this topic Polio vaccine Aged Out No longer elig ible based on patient's age to complete this topic Procedures Procedure Name Priority Date/Time Associated Diagnosis Comments HEMOGLOBIN A1C Routine 05/10/2022 3:35 AM EST LIPID PANEL Routine 05/10/2022 3:35 AM EST from Last 3 Months or Most Recently Relevant to Health Maintenance Results * Hemoglobin A1c (05/10/2022 3:35 AM EST) Hemoglobin A1C 5.3 4.0 - 6.0 % 05/10/2022 3:35 AM EST [facility] Estimated Avg Glucose 105 mg/dL 05/10/2022 3:35 AM EST [facility] Comment: The ADA and AACC recommend providing the estimated average glucose result to permit better patient understanding of their HBA1c result. 05/10/2022 3:35 AM EST 05/10/2022 3:40 AM EST Elisha Earl THERAPEUTIC RECREATION ASSISTANT - THERMAL CUTTER HAND CHEMISTRY ORDE ANA Final Result [facility] [address] [place] [address], [facility] [phone] * (ABNORMAL) Lipid Panel (05/10/2022 3:35 AM EST) Cholesterol 204(H) <200 mg/dL 05/10/2022 3:35 AM EST [facility] Comment: Cholesterol Guidelines: <200 Desirable 200-240 Borderline >240 Undesirable HDL 99 >40 mg/dL 05/10/2022 3:35 AM EST [facility] Comment: HDL Guidelines: <40 Undesirable 40-59 Borderline >59 Desirable LDL Cholesterol 97 0 - 130 mg/dL 05/10/2022 3:35 AM [facility] Comment: LDL Guidelines: <100 Desirable 100-129 Near to/above Desirable 130-159 Borderline >159 Undesirable Direct (measured) LDL and calculated LDL are not interchangeable tests. Chol/HDL Ratio 2.1 <5 05/10/2022 3:35 AM EST [facility] Comment: Triglycerides 41 <150 mg/dL 05/10/2022 3:35 AM [facility] Comment: Triglyceride Guidelines: <150 Desirable 150-199 Borderline 200-499 High >499 Very high Based on AHA Guidelines for fasting triglyceride, April 2012. 05/10/2022 3:35 AM EST 05/10/2022 3:40 AM EST Elisha Earl THERAPEUTIC RECREATION ASSISTANT - THERMAL CUTTER HAND CHEMISTRY ORDE ANA Final Result Performing Organization Address City/State/[facility] Co de Phone Number [facility] [address] [phone] from Last 3 Months or Most Recently Relevant to Health Maintenance Insurance Advance Directives * Full Code (Latest Code Status on File) Date Activated Date Inactivated Comments 06/14/2022 11:09 AM 06/16/2022 8:53 PM * Full Code Date Activated Date Inactivated Comments 05/09/2022 10:32 PM 05/12/2022 7:49 PM * Full Code Date Activated Date Inactivated Comments 05/03/2020 1:20 AM 05/03/2020 5:27 PM Healthcare Agents on File Name Relationship Healthcare Agent [facility] p Communication Ehsan Fang Spouse Primary Decision Maker Care Teams Banquet Steward Relationship Specialty Start Date End Date Fran Guajardo, BRIGIDOC [address] [place] [address] PCP - General Family Medicine 05/09/22
--- NOTE | 2025-03-29 23:26 | ED.GENADUL1 ---
HPI HPI - General Adult General Chief complaint: Extremity Injury, Upper Stated complaint: FELL UP THE STEPS HURT HER RIBS Time Seen by Provider: 03/29/25 23:19 Source: patient Mode of arrival: walk-in History of Present Illness HPI narrative: patient fell 4-5 days ago walking up her stairs and struck her left chest. Pain ever since . Not short of breath. No fever , nausea or vomiting. Presents because of continued pain. she denies abdominal pain Related Data Home Medications ?Medication ?Instructions ?Recorded ?Confirmed aspirin 81 mg tablet,delayed 81 mg PO DAILY 09/20/23 03/29/25 release Allergies Allergy/AdvReac Type Severity Reaction Status Date / Time hydromorphone (From Dilaudid) Allergy Intermediate Hives Verified 09/21/23 08:06 morphine Allergy Intermediate itch Verified 09/20/23 18:50 Opioid HPI Opioid Management Most Recent Opioid Data: Last Pain Scale 10 Today, 22:56 Last ED Pain Assessment Today, 22:56 Last ORT Total Score 4 09/20/23, 22:47 Last ORT Risk Category Moderate Risk 09/20/23, 22:47 Review of Systems ROS Status of ROS 10 or more systems reviewed and unremarkable except as noted in history and below [facility] Medical History (Updated 03/29/25 @ 23:29 by Checo Myles MD) Herniation of intervertebral disc between L5 and S1 ?M51.27 - Other intervertebral disc displacement, lumbosacral region (ICD-10) Lumbar radiculopathy ?M54.16 - Radiculopathy, lumbar region (ICD-10) Benign essential hypertension ?I10 - Essential (primary) hypertension (ICD-10) Hyponatremia ?E87.1 - Hypo-osmolality and hyponatremia (ICD-10) 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, lumbar region (ICD-10) Surgical History (Updated 09/20/23 @ 22:46 by Annelise Ford) H/O total hysterectomy ?Z90.710 - Acquired absence of both cervix and uterus (ICD-10) H/O splenectomy ?Z90.81 - Acquired absence of spleen (ICD-10) Family History (Updated 09/20/23 @ 23:04 by Shabana Mendoza RN) Father Family history of cancer Family history of diabetes mellitus Family history of hypertension Mother Family history of diabetes mellitus Family history of hypertension Social History (Updated 09/20/23 @ 22:49 by Annelise Ford) Within the past year, how often did you have a drink containing alcohol: 4 or more times a week Within the past year, how many standard drinks containing alcohol did you have on a typical day: 3 or 4 Within the past year, how often did you have six or more drinks on one occasion: weekly Total score: 5 Score interpretation: A score of 3 or more indicates drinking is likely to affect patient's safety. Smoking status: Former smoker Non-prescribed substance use: denies use Previous occupational history: unemployed Highest level of school completed/degree received: GED or equivalent Are you now , , , , never or living with a partner: In a typical week, how many times do you talk on the telephone with family, friends, or neighbors: 3 or more times per week How often do you get together with friends or relatives: 3 or more times per week How often do you attend protestant or confucianism services: never Do you belong to any clubs or organizations such as protestant groups unions, [employer]tho[employer] or athletic groups, or school groups: no Total score: 2 Score interpretation: A score of greater than or equal to 2 indicates the lowest level of social isolation. Little interest or pleasure in doing things: not at all Feeling down, depressed, or hopeless: not at all Feel stressed/tense/nervous/anxious/difficulty sleeping: not at all Do you think of yourself as: straight/heterosexual Gender Identity: female Exam Constitutional Vital Signs, click to edit/add: Last Vital Signs Temp 99.2 F 03/29/25 21:53 Pulse 111 H 03/29/25 21:53 Resp 18 03/29/25 22:58 BP 156/96 H 03/29/25 21:53 Pulse Ox 96 03/29/25 21:53 O2 Del Method Room Air 03/29/25 21:53 Common normals: no apparent distress, average body habitus, oriented x3, no limitations, healthy appearing, alert and well nourished [facility] Common normals: normocephalic and head/scalp atraumatic Eye Common normals: EOMs intact bilaterally and conjunctivae normal Chest Other: left chest wall tender. no crepitus Respiratory Common normals: normal respiratory effort, no retractions and no use of accessory muscles Cardio Common normals: regular rate, regular rhythm, S1 normal heart sound and S2 normal heart sound GI Other: abdomen is soft . she is tender left upper and left lower quad Extremity Common normals: normal to inspection and full ROM Neuro Common normals: oriented x3, CN's II-XII intact bilaterally, moves all extremities and no focal motor deficits Psych Appearance: grossly normal Course Vital Signs Vital signs: Vital Signs Temperature 99.2 F 03/29/25 21:53 Pulse Rate 111 H 03/29/25 21:53 Respiratory Rate 20 03/29/25 21:53 Blood Pressure 156/96 H 03/29/25 21:53 Pulse Oximetry 96 03/29/25 21:53 Oxygen Delivery Method Room Air 03/29/25 21:53 Temperature 99.2 F 03/29/25 21:53 Pulse Rate 111 H 03/29/25 21:53 Respiratory Rate 18 03/29/25 22:58 Blood Pressure 156/96 H 03/29/25 21:53 Pulse Oximetry 96 03/29/25 21:53 Oxygen Delivery Method Room Air 03/29/25 21:53 Medical Decision Making MDM Narrative Medical decision making narrative: xray with findigs of possible left 7th and 8th rib fractures. Clinically she does have left rib fractures. she also has abdominal tenderness. She however is refusing any additional testing. She does not want CT or labs. Just wants something for pain. given # 4 kacey to take home for the night and advised to return if she changes her mind about more test . Also needs close follow up with her doctor Imaging Data Chest x-ray: Radiologist's impression: ITS Impressions Ribs X-Ray 03/29/25 22:02 IMPRESSION: Questionable summation artifact versus subacute fracture left seventh and eighth ribs. Please correlate with point tenderness.. Impression dictated by: Yosi Sullivan M.D. 03/29/2025 10:51 PM Dictation Location: [email or web address] Electronically authenticated by: [id number] Y Date: 03/29/2025 22:51 Discharge Plan Discharge Chief Complaint: Extremity Injury, Upper Clinical Impression: Left rib fracture Patient Disposition: Home, Self-Care Prescriptions / Home Meds: No Action aspirin 81 mg tablet,delayed release (DR/EC) 81 mg PO DAILY Print Language: Mauritanian Instructions: Rib Fracture (ED) Additional Instructions: follow up with your doctor tuesday. Return if you change your mind about additional testing Referrals: Physician,Non-Staff, MD [Primary Care Provider] - 1 week
[2025-03-29] MEDS: HYDROCODONE/ACET 5-325 MG TABLET 4 TAB PO (23:41)
[2025-03-29 23:45] VITALS: BP 148/98; PULSE 102; O2SAT 97
== END 2025-03-29 23:49 | disposition home or self-care (01) ==
PROVIDERS: Emergency Provider Internal Medicine
DX: S22.42XA Multiple fractures of ribs, left side, initial encounter for closed fracture (principal); W10.8XXA Fall (on) (from) other stairs and steps, initial encounter; Z87.891 Personal history of nicotine dependence
CPT/HCPCS: 71101; 94667; 99283